=== PATIENT | male | born 1965 | race Caucasian/White ===

== ENCOUNTER → 2017-05-04 | Outpatient (REF) ==
--- NOTE | 2017-05-04 14:47 | REP ---
PARTIAL LUMBAR SPINE, THREE VIEWS: HISTORY: Degenerative disc disease. There is no acute fracture or subluxation. The lumbar intervertebral discs are decreased in height consistent with disc degeneration. Osteophytes are present throughout the lumbar spine. There is minimal scoliosis convex to the right. The patient is status post stenting of an abdominal aortic aneurysm. IMPRESSION: Degenerative change as described above. Signed by Eder Rehman MD 05/04/2017 02:50 P
== END ==
LOC: M SMT 13:53
PROVIDERS: ATTEND Internal Medicine
DX: M54.5 Low back pain (principal)